=== PATIENT | female | born 1950 | race Caucasian/White ===

== ENCOUNTER → 2018-01-15 09:55 | Outpatient (CLI) | payer MEDICARE, OTHER, SELFPAY ==
--- NOTE | 2018-01-15 10:06 | BI_ITS ---
MAMMOGRAPHY - BILATERAL SCREENING REASON FOR EXAM: Female, 67 years old. Routine annual screening examination. PERTINENT HISTORY: Non-contributory. TECHNIQUE: Digital bilateral breast brooke (3D mammographic acquisition) in the CC and MLO projections. 2-D mediolateral oblique (MLO) and craniocaudad (CC) views of both breasts were obtained. CAD: Full Field Digital Mammography with Computer Added Detection was performed. COMPARISON: Comparison is made with prior outside examination dated March 25, 2016. FINDINGS: Breast Composition: There are scattered areas of fibroglandular density. There is a 6.7 mm x 8.1 mm well-defined nodular density in the superior retroareolar region of the left breast. Correlation with ultrasound is recommended. Stable appearance of the small benign appearing bilateral axillary lymph nodes. No other significant abnormalities are identified. There has been no significant change since the prior study. BI/SCREENING MAMM (CAD), BILAT IMPRESSION: 6.7 mm x 8.1 mm well-defined nodular density in the superior retroareolar region of the left breast as described. Correlation with ultrasound is recommended. ASSESSMENT CATEGORY: BIRADS Category 0: Incomplete. Need additional imaging evaluation. A letter regarding these results will be sent to the patient by the facility within 30 days. Approximately 10% of breast cancers are not detected by mammography. A normal mammogram should not delay biopsy of a clinically suspicious abnormality. [id number] Electronically Signed: Doc Lucero MD at 11:05 EDT Tel [phone], Service support ,
== END ==
PROVIDERS: Visit Provider Nurse Practitioner Women's Health
DX: Z12.31 Encounter for screening mammogram for malignant neoplasm of breast (principal)
CPT/HCPCS: 77063; 77067

== ENCOUNTER → 2018-01-19 08:00 | Outpatient (CLI) | payer MEDICARE, OTHER, SELFPAY ==
--- NOTE | 2018-01-19 08:02 | US_ITS ---
STUDY: ULTRASOUND BREAST - LEFT REASON FOR EXAM: Female, 67 years old. Abnormal screening mammogram. TECHNIQUE: Axial and longitudinal images of the LEFT breast were performed with a high resolution ultrasound transducer. COMPARISON: Comparison is made with prior mammogram dated January 15, 2018. FINDINGS: LEFT Breast: The mammographic abnormality corresponds to a 8 mm x 7 mm x 4 mm well-defined hypoechoic nodule at the 12:00 position of breast at 1 cm from the nipple. This is not a cyst. Tissue diagnosis is recommended. US/Breast Limited Unilateral IMPRESSION: 8 mm x 7 mm x 4 mm well-defined hypoechoic nodule at the 12:00 position of the breast and 1 cm from nipple. Biopsy recommended. ASSESSMENT CATEGORY: BIRADS Category 4: Suspicious - Biopsy Should Be Considered. A letter regarding these results will be sent to the patient by the facility within 30 days. Electronically Signed: Doc Lucero MD at 8:48 EDT Tel [phone], Service support ,
== END ==
PROVIDERS: Visit Provider Nurse Practitioner Women's Health
DX: R92.8 Other abnormal and inconclusive findings on diagnostic imaging of breast (principal)
CPT/HCPCS: 76642

== ENCOUNTER → 2018-01-19 17:57 | Outpatient (CLI) | payer MEDICARE, OTHER, SELFPAY | PROVIDERS: Visit Provider Nurse Practitioner Women's Health | DX: R30.0 Dysuria (principal) | CPT/HCPCS: 87086 ==

== ENCOUNTER → 2018-01-26 08:06 | Outpatient (CLI) | payer MEDICARE, OTHER, SELFPAY ==
--- NOTE | 2018-01-26 08:10 | US_ITS ---
ULTRASOUND GUIDED CORE BIOPSY REASON FOR EXAM: Female, 67 years old. Left breast ultrasound-guided core biopsy. PERTINENT HISTORY: Left breast mass. 1:00 position. TECHNIQUE: (All elements of maximal sterile barrier technique followed, including US elements as applicable) Findings: Multiple core samples were obtained from the left breast nodule at the 1:00 position approximately 1 cm from the nipple. Procedure performed by Dr. Johnson. Postprocedure mammography was obtained to document clip placement. US/US Breast Biopsy 1st Lesion IMPRESSION: Ultrasound guided core biopsy of a mass in the LEFT breast at 1:00 position without complication. Procedure performed by Dr. Johnson. An addendum to this report will be rendered with appropriate recommendations when the pathology report is finalized. Electronically Signed: Jose D Barrios MD at 9:38 EDT , Service support ,
--- NOTE | 2018-01-26 08:41 | BRBX_PTH ---
PATIENT: RAZIA MARTIN LOC: [facility]#:[id number] AGE/SX: 74/F ROOM: RE01/26/[address]: Dr. Vanessa Johnson MD : 1950 BED: DIS: SPEC #: [id number] RECD: 01/26/18 09:19 STATUS: ROBERT ROSA ISELA #: [id number] BIANKA: 01/26/18 08:[address]: Vanessa Johnson DEPT: SURGICAL PATHOLOGY RECD BY: Kenneth Roque ENTERED: 01/26/18 11:13 SP TYPE: BREAST BX OT DR: No Primary Care Phys Tissues: Left breast, NOS Procedures: Surgery Specimen Level IV HEADER OPERATION: Ultrasound-guided left breast biopsy PRE-OP DIAGNOSIS: Left breast lump TISSUE SUBMITTED: Left breast core tissue ISCHEMIC TIME: 1 minute FIXATION TIME: 11 hours MICROSCOPIC DIAGNOSIS Left breast mass, ultrasound-guided core biopsy: Fibrocystic change. No evidence of malignancy. AM:edie 01/27/18 MICROSCOPIC DESCRIPTION Slides are reviewed. GROSS DESCRIPTION Received in fixative is one container labeled with the patient's name and designated left breast biopsy. The specimen consists of multiple irregular and elongated fragments of yellow-white soft tissue that in aggregate measure 1.2 x 1 x 0.1 cm. The specimen is totally submitted in one cassette. / AM:edie 01/26/18 TC:5 CPT: 28721
--- NOTE | 2018-01-26 09:17 | BI_ITS ---
MAMMOGRAPHY - UNILATERAL DIAGNOSTIC: LEFT BREAST REASON FOR EXAM: Female, 67 years old. Abnormal screening mammography. PERTINENT HISTORY: Non-contributory. TECHNIQUE: Digital examination. Mediolateral oblique (MLO) and craniocaudad (CC) views of the breast were obtained. CAD: COMPARISON: Bilateral screening mammography performed January 15, 2018 demonstrating a 6.7 x 8.1 mm nodular density in the superior retroareolar region of the left breast. Evaluate clip placement. FINDINGS: Breast Composition: There are scattered areas of fibroglandular density. A single metallic biopsy clip now exists in the approximate 1:00 position left breast located approximately 4.6 cm from the nipple base. BI/DIAG MAMM W/CAD, UNILAT IMPRESSION: The metallic biopsy clip is seen in the approximate 12 to 1:00 position located 4.6 cm from the nipple base. Please note that the prior mammogram and left breast sonography indicated the hypoechoic and mammographic nodule to be located approximately 1 cm from the nipple. ASSESSMENT CATEGORY: FOLLOW-UP RECOMMENDATION: Left breast 3 month short interval postbiopsy mammographic and sonographic follow-up. Approximately 10% of breast cancers are not detected by mammography. A normal mammogram should not delay biopsy of a clinically suspicious abnormality. Electronically Signed: Jose D Barrios MD at 13:22 EDT , Service support ,
--- NOTE | 2018-01-26 09:41 | PCM.OP.BLANK ---
Operative Report Date of Procedure: 01/26/18 Procedure: ultrasound-guided core biopsy Indications: 67 year-old female with hypoechoic nodule at 1:00 in the left breast 1 centimeter from the nipple. Risk benefits were discussed the patient and she elected to proceed with ultrasound guided core biopsy with clip placement Description of procedure: Patient was brought into the ultrasound room in the left breast was marked. A timeout was completed verifying correct patient, procedure, site, specially, prior to beginning procedure. The left breast was prepped and draped in usual sterile fashion and using local anesthesia was obtained with 1% lidocaine with epi. The lesion was located with the ultrasound. Small incision was made with 11 blade to introduced the mammotome through the skin. Under ultrasound guidance multiple core samples were obtained using then 13-gauge mammotome, the nodule did disappear with the third biopsy. The specimens were sent in formalin for pathology. The mammotome mammostar clip was then deployed into the biopsy cavity under ultrasound guidance and a picture was taken. Upon completion procedure hemostasis was obtained and a Steri-Strip and OpSite were placed. Patient was then taken to the mammography suite for clip verification. The clip was verified. The patient tolerated the procedure well and was discharged from the breast imaging department good condition. complications: none
== END ==
PROVIDERS: Visit Provider Surgery
DX: N60.12 Diffuse cystic mastopathy of left breast (principal); R92.8 Other abnormal and inconclusive findings on diagnostic imaging of breast
CPT/HCPCS: 19083; 77065; 88305

== ENCOUNTER → 2018-02-18 10:38 | Outpatient (CLI) | payer MEDICARE, OTHER, SELFPAY ==
[2018-02-18 11:40] LABS: Absolute Lymphocyte Count 2.44 X10^3/ul (0.83-4.51); Absolute Neutrophil Count 4.9 X10^3/uL (2.0-7.7); Basophil# 0.03 X10^3/uL; Basophil% 0.4 % (0-1); Eosinophil# 0.15 X10^3/uL; Eosinophils% 1.8 % (0-5); Hematocrit 43.3 % (37-47); Hemoglobin 14.2 g/dl (12.0-15.0); Lymphocyte # 2.44 X10^3/ul (4.0); Lymphocyte % 30.1 % (19-41); Mean Corp Hgb Conc 32.8 g/gl (32-36); Mean Corpuscular Hgb 29.3 pg (27.0-32.0); Mean Corpuscular Volume 89.5 fL (81-99); Mean Platelet Vol. 10.6 fl (6.2-12.0); Monocyte# 0.61 X10^3/uL; Monocyte% 7.5 % (0-10); Neutrophil # 4.87 X10^3/uL (2.7-7.7); Neutrophil % 60.1 % (47-70); POSITIVE COUNT NO; POSITIVE DIFFERENTIAL NO; POSITIVE MORPHOLOGY NO; Platelet Count 193 K/mm3 (150-450); RBC Distribution Width CV 13.4 % (11.6-14.6); RBC Distribution Width SD 43.5 fl (35.1-43.9); Red Blood Count 4.84 M/mm3 (4.2-5.4); White Blood Count 8.1 K/mm3 (4.4-11.0)
[2018-02-18 12:08] LABS: ALB/GLOB Ratio 1.3 RATIO (0.9-2.4); AST(SGOT) 15 U/L (15-37); Alanine Aminotransfer ALT/SGPT 22 U/L (13-56); Albumin, Serum 3.9 g/dL (3.2-5.0); Alkaline Phosphatase 69 U/L (45-117); Anion Gap 7 (5-15); BUN 13 mg/dL (7-18); BUN/Creat Ratio 18.3 RATIO (10-20); Chloride 107 mmol/L (98-107); Cholesterol 256 mg/dL (200); Creatinine, Serum 0.71 mg/dL (0.55-1.02); EST Glomerular Filtration Rate 87 mL/min (>60); Est Glom Filt Rate - Afr Amer 106 mL/min (>60); Globulin 3.1 g/dL (2.2-4.2); Glucose 94 mg/dL (74-106); High Density Lipoprotein 89 mg/dL; Potassium 4.3 mmol/L (3.5-5.1); Sodium Level 140 mmol/L (136-145); Triglycerides 118 mg/dL; Very Low Density Lipoprotein 24 mg/dL (5-40)
[2018-02-18 12:16] LABS: Vitamin D,25 Hydroxy 50.6 ng/mL (29.95-100.01)
== END ==
PROVIDERS: Family Provider Internal Medicine; PCP Internal Medicine; Visit Provider Internal Medicine
DX: I10 Essential (primary) hypertension (principal); M81.0 Age-related osteoporosis without current pathological fracture; I34.1 Nonrheumatic mitral (valve) prolapse
CPT/HCPCS: 36415; 80053; 80061; 82306; 85025

== ENCOUNTER → 2018-02-19 10:53 | Outpatient (CLI) | payer MEDICARE, OTHER, SELFPAY ==
--- NOTE | 2018-02-19 11:01 | BD_ITS ---
STUDY: DUAL ENERGY X-RAY ABSORPTIOMETRY / DXA REASON FOR EXAM: Female, 67 years old. The patient is postmenopausal. Loss of height. TECHNIQUE: Bone Mineral Density (BMD) measurements of lumbar spine and bilateral hips were obtained. COMPARISON: Comparison is made with prior study dated March 12, 2005. FINDINGS: Lumbar Spine (L1-L4): g/cm2 (0.853) / T-score (-2.7) / Z-score (-1.1) Findings are suggestive of osteoporosis with a high fracture risk. Left Femur Total: g/cm2 (0.916) / T-score (-0.7) / Z-score (0.5) Left Femoral Neck: g/cm2 (0.870) / T-score (-1.2) / Z-score (0.3) Right Femur Total: g/cm2 (0.933) / T-score (-0.6) / Z-score (0.7) Right Femoral Neck: g/cm2 (0.885) / T-score (-1.1) / Z-score (0.4) The T-Scores on the most recent prior examination were: Lumbar Spine (L1-L4): There has been worsening of bone density since the previous examination. Left Femur Total: which represents a worsening of 7%. BD/Dexa Bone Density Study IMPRESSION: The patient is considered osteoporotic at the low lumbar spine as outlined below according to World [place] Organization (WHO) criteria with a high fracture risk. There has been worsening of bone density since the previous examination. Reference Information: The T-score is the number of standard deviations above or below the standard which is normal for young adults at their peak bone mineral density. The World Health Organization (WHO) interprets the T-scores as follows: Above -1 Normal bone density Between -1 and -2.5 Osteopenia Equal to / or below -2.5 Osteoporosis As a practical clinical guideline, osteopenia may be graded as follows: Mild -1 through -1.5 Moderate -1.6 through -2.0 Severe -2.1 through -2.4 The Z-score is the number of standard deviations above or below age-matched controls. A Z-score of less than -1.5 would be considered abnormal. References: 1. NIH Osteoporosis and Related Bone Diseases http://www.osteo.org 2. International Society for Clinical Densitometry http://www.iscd.org 3. National Osteoporosis Foundation http://www.nof.org Electronically Signed: Doc Lucero MD at 12:29 EDT Tel [phone], Service support ,
== END ==
PROVIDERS: Family Provider Internal Medicine; PCP Internal Medicine; Visit Provider Internal Medicine
DX: Z78.0 Asymptomatic menopausal state (principal); M81.0 Age-related osteoporosis without current pathological fracture
CPT/HCPCS: 77080

== ENCOUNTER → 2018-02-24 14:41 | Outpatient (CLI) | payer MEDICARE, OTHER, SELFPAY ==
--- NOTE | 2018-02-24 14:45 | ECHOD_ITS ---
Reason For Study: MVP Procedure This was a 2D Doppler, Color Flow transthoracic echocardiogram. Exam performed in department. Left Ventricle Normal LV size. Left ventricular systolic function is normal. The estimated ejection fraction is 60 %. Transmitral diastolic flow velocities suggest mild (stage 1) diastolic dysfunction (reversed pattern). No regional wall motion abnormalities noted. Right Ventricle Normal RV size. Normal systolic function. Atria The left atrium is mildly enlarged. Normal right atrium. Mitral Valve Bileaflet diffuse mitral valve thickening. Posterior leaflet mitral valve prolapse. Moderate (2+) eccentric mitral valve insufficiency. Tricuspid Valve Normal tricuspid valve. Mild to moderate (1-2+) tricuspid valve insufficiency. Pulmonary artery systolic pressure is 45 mmHg. Aortic Valve Normal aortic valve. Trisinus/trileaflet aortic valve. Pulmonic Valve Normal pulmonic valve. Great Vessels Normal aortic root. The pulmonary artery is normal size. Normal inferior vena cava. Pericardium/Pleural No pericardial effusion. MMode/2D Measurements & Calculations RVDd: 3.2 cm Ao root diam: 3.6 cm LAV(MOD-bp): 103.1 ml LAV(MOD-bp) Indexed: 59.8 ml/m2 LAV(MOD-sp2): 102.3 ml LAV(MOD-sp4): 103.9 ml LA A4 area: 28.4 cm2 RA A4 area: 10.7 cm2 Time Measurements MV dec time: 0.32 sec Doppler Measurements & Calculations MV E max danny: 78.2 cm/sec Med Peak E' Danny: 5.9 cm/sec MV V2 max: 122.6 cm/sec MV A max danny: 103.5 cm/sec E/E' med: 13.2 MV max P.0 mmHg MV E/A: 0.76 MV V2 mean: 74.7 cm/sec MV mean P.6 mmHg MV V2 VTI: 41.5 cm MV P1/2t max danny: 122.0 cm/sec Ao V2 max: 126.0 cm/sec LV V1 max: 90.3 cm/sec MV P1/2t: 99.7 msec Ao max P.3 mmHg LV V1 max P.3 mmHg MV dec slope: 358.5 cm/sec2 Ao V2 mean: 78.6 cm/sec LV V1 mean P.5 mmHg MVA(P1/2t): 2.2 cm2 Ao mean P.8 mmHg LV V1 mean: 55.4 cm/sec Ao V2 VTI: 21.0 cm LV V1 VTI: 17.3 cm PA V2 max: 67.3 cm/sec TR max danny: 323.0 cm/sec TR max P.7 mmHg Interpretation Summary Normal LV size. Left ventricular systolic function is normal. The estimated ejection fraction is 60 %. Bileaflet diffuse mitral valve thickening. Posterior leaflet mitral valve prolapse. Moderate (2+) eccentric mitral valve insufficiency. Compared to the previous the prolapse is about the same but the pulmonary pressures are elevated. Ordering Physician: Dinh Talamantes Referring Physician: Dinh Talamantes Performed By: Delon Hyde RCS
== END ==
PROVIDERS: Family Provider Internal Medicine; PCP Internal Medicine; Visit Provider Internal Medicine Cardiovascular Disease
DX: I34.0 Nonrheumatic mitral (valve) insufficiency (principal)
CPT/HCPCS: 93306

== ENCOUNTER → 2018-04-02 10:45 | Outpatient (CLI) | payer MEDICARE, OTHER, SELFPAY ==
--- NOTE | 2018-04-02 11:00 | RAD_ITS ---
STUDY: X-RAY - PELVIS AND LEFT HIP REASON FOR EXAM: Female, 67 years old. Pain in the left hip since January. TECHNIQUE: Radiological exam, hip, unilateral, with pelvis when performed; 2 or 3 views. COMPARISON: None. FINDINGS: There is a non-specific bowel gas pattern. Pessary is present. Group of focal densities in the left pelvis which are likely to be contrast retained in diverticula. Vertical anastomotic suture row of the left lower quadrant. Normal bilateral iliac wings, sacroiliac joints and visualized sacrum. Normal bilateral superior and inferior pubic rami. Normal pubic symphysis. Normal bilateral ischial tuberosities. Normal visualized femoral head. Normal acetabulum. Normal hip joint. RAD/Hip 2-3 Views with Pelvis IMPRESSION: Normal x-ray examination of the pelvis and hip. Electronically Signed: Katarzyna Martínez MD at 17:02 EDT , Service support ,
== END ==
PROVIDERS: Family Provider Internal Medicine; PCP Internal Medicine; Visit Provider Nurse Practitioner Family
DX: M25.552 Pain in left hip (principal)
CPT/HCPCS: 73502

== ENCOUNTER 2018-05-07 09:30 | Outpatient (RCR) | payer MEDICARE, OTHER, SELFPAY ==
--- NOTE | 2018-04-23 11:53 | HP.PTEVAL_ITS ---
Patient's Visit Information RAZIA MARTIN is a 67 year old F referred to Physical Therapy by JOE Conway with a diagnosis of LEFT HIP AND LOW BACK PAIN. Date of Evaluation: 04/23/18 Physical Therapist: Karen Little Visit Plan Frequency: 2-3x /Week Duration: 4-6 Weeks Plan: LUMBAR US AND STM. POSTURE CORRECTION/STRENGTHENING, INSTRUCTION IN APPROPRIATE BODY MECHANICS AND ACTIVITY MODIFICATIONS. DLS STARTING WITH A NEUTRAL SPINE PROGRESSING ROM TOLERATED. KWABENA LE ROM, STRETCHING AND STRENGTHENING. HEP INSTRUCTION. - Subjective Subjective: Work/Leisure: RETIRED. Disability: NO. Present symptoms: LEFT LOW BACK PAIN. LEFT THIGH, LEG AND FOOT SX'S TO HER TOES. THE NUMBNESS AND TINGLING IS MOSTLY JUST IN HER TOES BUT PAIN THE WHOLE WAY DOWN HER LEG. Present since: END January 2018. Pain Scale: WORST 8/10, LEAST 0/10. ALL SX 'S COME AND GO INCLUDING TINGLING IN THE TOES. Currently: 1/10 PAIN IN LEFT BUTTOCK. Commenced as a result of: NO APPARENT REASON. Symptoms at onset: LOW BACK PAIN. Worse: BENDING, REACHING, LIFTING, STANDING AND RISING FROM SITTING. Better: STRETCHING LEFT LE AND SHE DESCRIBES STRETCHES LIKE HAMSTRING STRETCHING AND A PIRIFORMIS STRETCH. Disturbed sleep: YES. TURNING OVER SEEMS TO BE THE PROBLEM WAKING HER UP. OK THE LAST TWO NIGHTS BUT DISTURBED BEFORE THAT. Previous history/Previous treatment: PATIENT REPORTS SHE HAS THROWN HER BACK OUT A FEW TIMES IN THE PAST BUT IT HAS BEEN YEARS SINCE THEN. SHE REPORTS SHE FEELS LIKE SHE HAS ALWAYS HAD A WEAK TORSO/BACK AND SHE TRIES TO DO EX'S TO STRENGTHEN IT. HAD PT HERE YEARS AGO AND IT HELPED. NO BACK SURGERY. NO BACK INJECTIONS. NO CHIROPRACTOR. Coughing/sneezing/ straining: NEGATIVE. Gait: PATIENT REPORTS SHE CAN WALK NORMAL BUT WHEN THE PAIN IS THERE SHE FEELS LIKE HER POSTURE IS WAY OFF AND IT PUSHES HER FORWARD. SHE ALSO FEELS LIKE HER SENSATION IS ALTERED IN THE LEFT FOOT AND THE MECHANICS CHANGE IN HER LEG WHEN IT IS FLARED UP. Difficulty initiating urinatin: NO. Accidents: NO. Unexplained weight loss: NO. Imaging: RECENT LEFT HIP X-RAY - NORMAL. PMH: MITRAL VALVE PROLAPSE, OSTEOPOROSIS, ANXIETY, HYPERTENSION, LICHEN SCLEROSUS, IBS. Recent major surgery: HYSTERECTOMY. OTHER: THIS EPISODE - TRIED PREDNISONE WITH SOME RELIEF BUT SYMPTOMS CAME BACK AFTER SHE FINISHED. PATIENT REPORTS THAT SHE HAS HAD EXTREME PAIN AT TIMES WITH THIS EPISODE THAT PROVOKE CRYING BUT SHE SEEMS TO HAVE HAD SOME IMPROVEMENT THE LAST TWO WEEKS FOR NO APPARENT REASON. SHE REPORTS SHE HAS GOOD DAYS AND BAD DAYS. - Objective Sitting/Standing Posture: POOR. Lordosis: REDUCED. Lateral shift: NO. Relevant shift: N/A. Active Correction of posture: WORSE - ACTUALLY PROVOKES INCREASED LEFT FOOT TINGLING. SLOUCHING ABOLISHES LEFT FOOT TINGLING. TOLERATES PASSIVE CORRECTION WELL WITH LUMBAR SUPPORT. Other Observations: INDEP GAIT INTO PT WITH NO GROSS DEVIATIONS NOTED AND INDEP TRANSFER SIT TO STAND WITHOUT UE ASSIST. Motor deficit: KWABENA LE STRENGTH IS 5/5 WITH MMT'ING EXCEPT HIPS: LEFT 4-/5, RIGHT 4/5. Sensory deficit: KWABENA LE LIGHT TOUCH SENSATION IS INTACT AND SYMMETRICAL INLUDING TOES. ROM deficit: KWABENA LE'S WFL BUT MILD TIGHTNESS KWABENA HS'S AND GASTROC SOLEUS COMPLEX'S. Reflexes: 2/3 KWABENA LE 'S. Dural Signs: NEGATIVE KWABENA LE'S. Lumbar mvmt loss: flex - NIL. ext - MOD - PROVOKES LBP IN STANDING. R SG - MIN. L SG - MOD. LEFT FOOT TINGLING BEFORE TESTING AND ABOLISHED AFTER LEFT SG TESTING EVEN THOUGH LEFT SIDE GLIDING WAS PAINFUL AND MORE LIMITED. REPEATED EIL RESULTS IN DECREASED C/O LBP AND DOES NOT PROVOKE LLE SX'S. PATIENT REPORTS SHE HAS BEEN TRYING THIS EX THAT SHE REMEMBERS FROM LAST PT ESPISODE OF CARE OFF AND ON BUT WASN'T SURE IF SHE SHOULD DO IT OR NOT. Core strength: POOR. Palpation: TENDERNESS WITH PALPATION OF THE ENTIRE LUMBOSACRAL AREA. - Goals Goal 1:: DECREASE C/O BACK AND LLE SX'S. Goal Time Frame: 4-6 Weeks Goal 2:: IMPROVE BENDING, LIFTING, PERSONAL CARE, WALKING, STANDING, AND SOCIAL LIFE FUNCTION. Goal Time Frame: 4-6 Weeks Goal 3:: INSTRUCT IN PROPHYLAXIS. Goal Time Frame: 4-6 Weeks - Rehabilitation Potential Rehabilitation Potential: Good - Anticipated Interventions Patient/Client Instruction: Educate patient on: Condition, Plan of Care, Risk Factors, Benefits of Fitness Program For the Purpose of:: To improve self management Therapeutic Exercise to Include: Strength training, Body mechanics, Postural training, Flexibilty training, Dynamic Lumbar Stabilization For the Purpose of:: To decrease pain, To increase ROM, To improve muscle performance and motor function, To improve ability of physical actions for home/ community/work/leisure Manual Therapy Techniques to Include: Soft tissue mobilization For the Purpose of:: To decrease pain, To increase ROM, To improve nutrient delivery to tissue Cryotherapy (ice pack, ice massage): Yes Thermo therapy (hot pack): Yes Ultrasound (thermal/non thermal): Yes For the Purpose of:: To decrease pain, To decrease swelling/inflammation, To increase ROM, To improve nutrient delivery to tissue Thank you for the opportunity to evaluate your patient. For Medicare and Medicare HMO plans, please review the plan of care and approve it. It will need to be FAXED BACK to us at [phone] for Medicare purposes. Please let me know if there are questions or concerns regarding this plan of care. Physician Signature: Date:
--- NOTE | 2018-05-07 10:03 | HP.PTDCSUM_ITS ---
HP - PT D/C Summary It has been my pleasure to treat RAZIA MARTIN under orders from Juan Lopez NP-C , for the diagnosis of LEFT HIP AND LOW BACK PAIN for a total of 6 visit(s). Discharge Date: Please see the following information for a summary of their discharge status. - Subjective Subjective: THIS PATIENT PRESENTS TO PT VERY UPSET ABOUT MULTIPLE FAMILY SITUATIONS GOING ON WITH HER SON IN THE ED, AN ILL SISTER AND UPCOMING SURGERY FOR HER . SHE JUST WANTS TO GO OVER HER CURRENT HOME INSTRUCTIONS AGAIN TO MAKE SURE SHE IS DOING WHAT SHE IS SUPPOSED TO BECAUSE SHE HASN'T HAD A TWINGE OF PAIN SINCE AT LEAST LAST VISIT AND SHE WANTS IT TO STAY THAT WAY. PHYSICALLY SHE FEELS GREAT BUT EMOTIONALLY SHE IS UNDER TREMENDOUS STRESS. SHE REPORTS SHE REALLY CAN'T COME BACK TO PT FOR AWHILE - Overall Improvement % Improvement: 95 - Objective Objective/Function: ALL GOALS MET AND PATIENT IS INDEP WITH A HEP. REVIEWED ALL HOME EX'S AND MADE SURE THAT PATIENT COULD DEMONSTRATE EACH ONE WITH GOOD TECHNIQUE. THE ONLY CUEING SHE NEEDED WAS TO DECREASE INTENSITIY AND RELAX SHOULDERS WHICH SEEMS TO BE MORE OF AN ISSUE TODAY DUE TO PATIENTS REPORTS OF STRESS. ISSUED GREEN TBAND TO DECREASE INTENSITY NEEDED. - Goals Goal 1:: DECREASE C/O BACK AND LLE SX'S. Goal Progress: Goal Met Goal 2:: IMPROVE BENDING, LIFTING, PERSONAL CARE, WALKING, STANDING, AND SOCIAL LIFE FUNCTION. Goal Progress: Goal Met Goal 3:: INSTRUCT IN PROPHYLAXIS. Goal Progress: Goal Met - Plan Plan: D/C TO INDEP HEP. PATIENT IS AGREEABLE AND WILL FOLLOW UP WITH HER FAMILY PHYSICIAN NEEDED. - D/C Information If there are questions or concerns regarding this patient's physical therapy, please feel free to call me at [phone]. Thank you for the referral of this patient. Sincerely, Karen Reyes
== END 2018-05-07 11:16 | disposition home or self-care (01) ==
LOC: PT 09:30
PROVIDERS: Family Provider Internal Medicine; PCP Internal Medicine; Visit Provider Nurse Practitioner Family
DX: M25.552 Pain in left hip (principal); M54.5 Low back pain
CPT/HCPCS: 97035; 97110; 97161; 97164; 97530

== ENCOUNTER → 2018-06-10 09:48 | Outpatient (CLI) | payer MEDICARE, OTHER, SELFPAY ==
[2018-06-10 10:50] LABS: Anion Gap 9 (5-15); BUN 12 mg/dL (7-18); BUN/Creat Ratio 15.4 RATIO (10-20); Calcium,Total 8.8 mg/dL (8.5-10.1); Chloride 107 mmol/L (98-107); Creatinine, Serum 0.78 mg/dL (0.55-1.02); EST Glomerular Filtration Rate 78 mL/min (>60); Est Glom Filt Rate - Afr Amer 95 mL/min (>60); Glucose 98 mg/dL (74-106); Potassium 4.5 mmol/L (3.5-5.1); Sodium Level 141 mmol/L (136-145)
== END ==
PROVIDERS: Family Provider Internal Medicine; PCP Internal Medicine; Visit Provider Internal Medicine
DX: I10 Essential (primary) hypertension (principal)
CPT/HCPCS: 36415; 80048

== ENCOUNTER → 2019-02-03 10:30 | Outpatient (CLI) | payer MEDICARE, OTHER, SELFPAY ==
[2018-08-19 15:57] VITALS: BMI 23.3
[2018-12-09 09:42] VITALS: BMI 23.3
--- NOTE | 2019-02-03 10:32 | BI_ITS ---
MAMMOGRAPHY - BILATERAL SCREENING REASON FOR EXAM: Female, 68 years old. Routine annual screening examination. PERTINENT HISTORY: Non-contributory. Prior left ultrasound-guided breast biopsy. TECHNIQUE: Digital bilateral breast taylor (3D mammographic acquisition) in the CC and MLO projections. 2-D mediolateral oblique (MLO) and craniocaudad (CC) views of both breasts were obtained. CAD: Full Field Digital Mammography with Computer Added Detection was performed. COMPARISON: Comparison is made with prior study dated January 15, 2018. FINDINGS: Breast Composition: There are scattered areas of fibroglandular density. There are no dominant masses or suspicious calcifications. Stable 7 mm x 8 mm nodular density in the superior retroareolar region of the left breast. A tissue marker is seen at the biopsy site. Stable appearance of the bilateral axillary lymph nodes. No other significant abnormalities are identified. There has been no significant change since the prior study. BI/SCREEN MAMM (CAD) W/TAYLOR BILAT IMPRESSION: Stable bilateral screening mammogram. Yearly follow-up mammogram recommended. (A) ASSESSMENT CATEGORY: BIRADS Category 2: Benign. A letter regarding these results will be sent to the patient by the facility within 30 days. Approximately 10% of breast cancers are not detected by mammography. A normal mammogram should not delay biopsy of a clinically suspicious abnormality. [id number] Electronically Signed: Doc Lucero, at 14:23 EDT , Service support ,
== END ==
PROVIDERS: Family Provider Internal Medicine; PCP Internal Medicine; Referring Provider Nurse Practitioner Women's Health; Visit Provider Nurse Practitioner Women's Health
DX: Z12.31 Encounter for screening mammogram for malignant neoplasm of breast (principal)
CPT/HCPCS: 77063; 77067

== ENCOUNTER → 2019-03-16 13:52 | Outpatient (CLI) | payer MEDICARE, OTHER, SELFPAY ==
[2019-02-25 08:33] VITALS: BMI 23.3
--- NOTE | 2019-03-16 13:53 | ECHOD_ITS ---
Reason For Study: MURMUR Procedure This was a 2D Doppler, Color Flow transthoracic echocardiogram. Exam performed in department. Left Ventricle Normal LV size. Left ventricular systolic function is normal. The estimated ejection fraction is 60 %. Normal diastology for age. No regional wall motion abnormalities noted. Right Ventricle Normal RV size. Normal systolic function. Atria The left atrium is moderately enlarged. Normal right atrium. Mitral Valve Bileaflet diffuse mitral valve thickening. Mild mitral valve prolapse, posterior leaflet. Mild- Moderate (1-2+) eccentric mitral valve insufficiency. Tricuspid Valve Normal tricuspid valve. Mild tricuspid valve insufficiency. Pulmonary artery systolic pressure is 34 mmHg. Aortic Valve Normal aortic valve. Trisinus/trileaflet aortic valve. Pulmonic Valve Normal pulmonic valve. Great Vessels Normal aortic root. The pulmonary artery is normal size. Normal inferior vena cava. Pericardium/Pleural Small pericardial effusion. There are no echocardiographic indications of cardiac tamponade. MMode/2D Measurements & Calculations LVIDd: 5.2 cm IVSd: 0.72 cm Ao root diam: 3.0 cm LVIDs: 3.1 cm LVPWd: 0.80 cm RVDd: 3.4 cm FS: 39.8 % LAV(MOD-bp): 89.7 ml LA A4 area: 26.0 cm2 LA dimension(2D): 4.5 cm LAV(MOD-bp) Indexed: 52.8 ml/m2 LAV(MOD-sp2): 76.8 ml LAV(MOD-sp4): 94.2 ml RA A4 area: 11.7 cm2 Doppler Measurements & Calculations Lat Peak E' Danny: 5.4 cm/sec Med Peak E' Danny: 4.4 cm/sec Ao V2 max: 127.5 cm/sec Ao max P.5 mmHg LV V1 max: 93.4 cm/sec PA V2 max: 68.9 cm/sec TR max danny: 270.3 cm/sec LV V1 max P.5 mmHg TR max P.2 mmHg Interpretation Summary Normal LV size. Left ventricular systolic function is normal. The estimated ejection fraction is 60 %. Mild tricuspid valve insufficiency. Bileaflet diffuse mitral valve thickening. Mild mitral valve prolapse, posterior leaflet Compared to prior study, there is no significant change. Ordering Physician: Dinh Talamantes Referring Physician: CLIF SMALLWOOD Performed By: Fabby Haro, BETSY, RVT
== END ==
PROVIDERS: Family Provider Internal Medicine; PCP Internal Medicine; Referring Provider Internal Medicine Cardiovascular Disease; Visit Provider Internal Medicine Cardiovascular Disease
DX: I34.1 Nonrheumatic mitral (valve) prolapse (principal)
CPT/HCPCS: 93306

== ENCOUNTER → 2019-06-16 09:31 | Outpatient (CLI) | payer MEDICARE, OTHER, SELFPAY ==
[2019-06-16 09:32] VITALS: BMI 23.3
[2019-06-16 09:34] LABS: Mucous, Urine 0 SEEN /hpf (<or=2+); Red Blood Cells-Urine 0 SEEN /hpf (0-5); White Blood Cells 0 SEEN /hpf (0-5)
[2019-06-16 12:16] LABS: Absolute Lymphocyte Count 2.14 X10^3/uL (0.83-4.51); Absolute Neutrophil Count 4.2 X10^3/uL (2.0-7.7); Basophil# 0.05 X10^3/uL; Basophil% 0.7 % (0-1); Eosinophils% 2.8 % (0-5); Hemoglobin 14.3 g/dL (12.0-15.0); Lymphocyte # 2.14 X10^3/ul (4.0); Lymphocyte % 29.9 % (19-41); Mean Corp Hgb Conc 33.3 g/dL (32-36); Mean Corpuscular Hgb 30.1 pg (27.0-32.0); Mean Corpuscular Volume 90.5 fL (81-99); Mean Platelet Vol. 10.6 fl (6.2-12.0); Monocyte# 0.58 X10^3/uL; Monocyte% 8.1 % (0-10); NRBC Flagged by Analyzer 0 % (0-5); Neutrophil # 4.16 X10^3/uL (2.7-7.7); Neutrophil % 58.2 % (47-70); Platelet Count 208 K/mm3 (150-450); RBC Distribution Width CV 12.7 % (11.6-14.6); RBC Distribution Width SD 42.1 fl (35.1-43.9); Red Blood Count 4.75 M/mm3 (4.2-5.4); White Blood Count 7.2 K/mm3 (4.4-11.0)
[2019-06-16 12:26] LABS: Color, Urine Yellow (Yellow); Glucose, Dipstick Normal (Normal); Ketone-Dipstick Negative (Negative); Leukocyte Esterase-Dipstick Negative /ul (Negative); Nitrite-Dipstick Negative (Negative); Occult Blood-Urine Negative /ul (Negative); Protein-Dipstick 30 mg/dl (Negative); Urine Bilirubin Dipstick Negative (Negative); Urine Clarity Clear (Clear); Urine Urobilinogen Normal (Normal)
[2019-06-16 12:34] LABS: Bacteria RARE /hpf (None Seen); Squamous Epithelial Cells - UA 0-5 SEEN /hpf (5-10)
[2019-06-16 12:39] LABS: ALB/GLOB Ratio 1.2 RATIO (0.9-2.4); AST(SGOT) 13 U/L (15-37); Alanine Aminotransfer ALT/SGPT 22 U/L (13-56); Albumin, Serum 3.6 g/dL (3.2-5.0); Alkaline Phosphatase 53 U/L (45-117); Anion Gap 6 (5-15); BUN 10 mg/dL (7-18); BUN/Creat Ratio 13.9 RATIO (10-20); Calcium,Total 8.9 mg/dL (8.5-10.1); Chloride 106 mmol/L (98-107); Cholesterol 230 mg/dL (200); Creatinine, Serum 0.72 mg/dL (0.55-1.02); EST Glomerular Filtration Rate 86 mL/min (>60); Est Glom Filt Rate - Afr Amer 104 mL/min (>60); Globulin 2.9 g/dL (2.2-4.2); Glucose 101 mg/dL (74-106); High Density Lipoprotein 96 mg/dL; Potassium 3.9 mmol/L (3.5-5.1); Protein, Total 6.5 g/dL (6.4-8.2); Sodium Level 139 mmol/L (136-145); Triglycerides 75 mg/dL; Very Low Density Lipoprotein 15 mg/dL (5-40)
== END ==
PROVIDERS: Family Provider Internal Medicine; PCP Internal Medicine; Visit Provider Internal Medicine
DX: I27.21 Secondary pulmonary arterial hypertension (principal); I10 Essential (primary) hypertension; E78.5 Hyperlipidemia, unspecified
CPT/HCPCS: 36415; 80053; 80061; 81001; 85025

== ENCOUNTER 2019-06-28 08:48 | Day surgery (SDC) | payer MEDICARE, OTHER, SELFPAY ==
--- NOTE | 2019-06-21 03:13 | HP_ITS ---
Intake Vital Signs 06/21/19 Body Mass Index (BMI) 23.3 06/21/19 Height 5 ft 5 in 06/21/19 Weight: 140 lb 06/21/19 Body Mass Index (BMI) 23.3 06/21/19 Blood Pressure 153/78 H 06/21/19 Blood Pressure Location Rt brachial 06/21/19 Respiratory Rate 16 06/21/19 Pulse Rate 73 06/21/19 Pulse Source Monitor 06/21/19 Temperature 98.5 F 06/21/19 Pulse Ox 96 06/21/19 Oxygen Delivery Method room air Intake Visit Reasons: blood in stool, reset colonoscopy date Feed Research Aide Required: No Is patient in pain?: No Allergies penicillin G Allergy (Mild, Verified 06/21/19 14:40) Other Medications clindamycin HCl 300 mg capsule 600 mg PO .COMPLEX #6 cap 04/28/18 [Rx Confirmed 06/21/19] denosumab 60 mg/mL subcutaneous syringe 60 mg SC [id number] 06/15/18 [History Confirmed 06/21/19] conjugated estrogens 0.625 mg/gram vaginal cream See Rx Instructions .ROUTE .COMPLEX #30 g 02/03/19 [Rx Confirmed 06/21/19] fluocinolone 0.025 % topical cream 1 applic TOPICAL BID PRN #15 g 02/03/19 [Rx Confirmed 06/21/19] hydrochlorothiazide 12.5 mg tablet 12.5 mg PO QAM #90 tab 02/25/19 [Rx Confirmed 06/21/19] fluconazole 150 mg tablet 150 mg PO .COMPLEX #2 tab 03/30/19 [Rx Confirmed 06/21/19] acebutolol 200 mg capsule 200 mg PO QDAY #90 cap 06/04/19 [Rx Confirmed 06/21/19] PFSH Medical History Secondary pulmonary arterial hypertension (Chronic) Essential (primary) hypertension (Chronic) Hyperlipidemia (Chronic) Nonrheumatic mitral (valve) insufficiency (Chronic) Nonrheumatic mitral valve prolapse (Chronic) Anxiety (Chronic) Atrophic vaginitis (Chronic) IBS (irritable bowel syndrome) (Chronic) Lichen sclerosus (Chronic) Osteoporosis (Chronic) Vaginal vault prolapse, posthysterectomy (Chronic) Surgical History H/O spinal fusion (Resolved) History of LAVH (Resolved) S/P breast biopsy, left (Resolved) Family History Sister Cancer ovarian Hypertension Mother Heart disease Hypertension Father Heart disease Hypertension Social History (Updated 06/21/19 @ 15:13 by Vanessa Johnson MD) Smoking Status: Never smoker Tobacco: How many years used: 10 how long ago did patient quit smokin alcohol intake: current alcohol intake frequency: 0-2 drinks per day Alcohol type: wine details: social-wine substance use type: does not use caffeine: Yes what type of physical activity do you participate in: walking seatbelt use: always do you feel safe at home: Yes additional social history: Isidro- Both are retired HPI HPI HPI: RAZIA MARTIN, is a 68 F who presents to the office today for HPI HPI Surgical H&P: Yes HPI: RAZIA MARTIN, is a 68 F who presents to the office today for colonoscopy due to blood per rectum, diarrhea. Patient states that a month ago she had some of her friends cookies with a certain sweetener in it and started to have diarrhea after that. Patient states her stools are still very loose but a little bit better. Last Friday patient did notice bright red blood upon wiping. Patient denies any further bleeding since then. Patient's last colonoscopy was in [address] Ruiz. Patient states she had a lot of pain during the procedure and was scheduled last year however she had to cancel and she also had lumbar fusion surgery in September 2018. Patient denies any family history of colon cancer. Exam Const General: cooperative, comfortable, no acute distress Resp Effort & Inspection: normal respiratory effort Cardio Rate: regular rate GI Inspection: non-distended Palpation: soft, no guarding, nontender Other: Patient does have a very small amount of residual external hemorrhoidal tissue at 5:00 also has internal hemorrhoid at 6:00 (12:00 equals posterior), no other masses appreciated, no gross blood Assessment & Plan Problems 1. Blood per rectum K62.5 2. Diarrhea R19.7 Plan I have discussed the above with the patient. I have offered the patient colonoscopy for evaluation. And will plan for random biopsies due to her diarrhea. I have explained the risks/benefits of the procedure and described the procedure. I have discussed the risks with the patient, including but not limited to: infection, bleeding, perforation of the GI tract requiring emergency surgery, inability to complete the procedure, injury to any internal organs, complications of anesthesia, etc. - the patient understands and agrees to proceed. I have answered all the patient's questions to the patient's satisfaction and the patient has no further questions. The patient has been given instructions for the colon cleansing preparation. One day of clears MiraLAX Dulcolax split prep. Vanessa Johnson M.D. Pager: [phone] [facility] [address] [place] [address], [address] [place] [address] Office: [phone] Plan Detail Follow Up We will schedule colonoscopy Coding Level of Care Code Off vis,est,level 3 Diagnoses Blood per rectum K62.5 Diarrhea R19.7 06/21/19 1513 <Electronically signed by Vanessa Foster am, MD> Date _ Vanessa Johnson MD I have re-examined the patient. There are no clinical changes since date of exam.
[2019-06-21 14:46] VITALS: BMI 23.3
[2019-06-28] VITALS (7 sets, daily range): BP systolic 106–141; BP diastolic 60–94; PULSE 67–79; RESP 16–18; TEMP 36.1–36.9; O2SAT 95–100; BMI 21.9
--- NOTE | 2019-06-28 | COLBX_PTH ---
PATIENT: RAZIA MARTIN LOC: EN U#:[id number] AGE/SX: 68/F ROOM: RE06/28/[address]: Dr. Vanessa Johnson MD : 1950 BED: DIS: 06/28/2019 SPEC #: [id number] RECD: 06/28/19 14:24 STATUS: ROBERT ROSA ISELA #: [id number] BIANKA: 06/28/19 00:[address]: Vanessa Johnson DEPT: SURGICAL PATHOLOGY RECD BY: Raymon Wylie ENTERED: 06/28/19 14:24 SP TYPE: COLON BX OTHR DR: Dr. Aníbal Chun MD Tissues: A - Ascending colon B - Transverse colon C - Descending colon D - Sigmoid colon biopsy E - Rectum, NOS Procedures: Surgery Specimen Level IV HEADER OPERATION: Colonoscopy (MAC) PRE-OP DIAGNOSIS: Diarrhea, blood per rectum TISSUE SUBMITTED: A - Ascending colon polyp, B - Biopsy of transverse colon polyp, C - Random biopsy of descending colon, D - Random biopsy of sigmoid colon, E - Random biopsies of rectal MICROSCOPIC DIAGNOSIS A. Ascending colon polyp, biopsy: Fragments of tubular adenoma. B. Transverse colon polyp, biopsy: Tubular adenoma. C. Descending colon, random biopsy: No pathologic diagnosis. D. Sigmoid colon, random biopsy: No significant pathologic change. E. Rectum, random biopsy: No pathologic change. AM:edie 06/29/19 MICROSCOPIC DESCRIPTION Slides are reviewed. GROSS DESCRIPTION A - Received in fixative is one container labeled with the patient's name and designated ascending colon polyp. The specimen consists of two irregular fragments of baird soft tissue that in aggregate measure 0.5 x 0.4 x 0.2 cm. The specimen is totally submitted in one cassette. B - Received in fixative is one container labeled with the patient's name and designated biopsy of transverse colon polyp. The specimen consists of one irregular fragment of light baird soft tissue that measures 0.3 x 0.3 x 0.1 cm. Also present in the container is a fragment of baird soft tissue measuring 0.1 cm in greatest dimension. The specimen is totally submitted in one cassette. C - Received in fixative is one container labeled with the patient's name and designated random biopsy of descending colon. The specimen consists of one irregular fragment of light baird soft tissue that measures 0.3 x 0.2 x 0.1 cm. The specimen is totally submitted in one cassette. D - Received in fixative is one container labeled with the patient's name and designated random biopsy of sigmoid colon. The specimen consists of one irregular fragment of light baird soft tissue that measures 0.3 x 0.2 x 0.1 cm. The specimen is totally submitted in one cassette. E - Received in fixative is one container labeled with the patient's name and designated random biopsy of rectum. The specimen consists of two irregular fragments of light baird soft tissue that in aggregate measure 0.5 x 0.2 x 0.1 cm. The specimen is totally submitted in one cassette. / SJ:rg 06/28/19 TC:5 CPT: 22134 x5
[2019-06-28] MEDS: Lactated Ringers 1,000 ML 100 ML IV (09:14)
--- NOTE | 2019-06-28 10:28 | OP.ENDO_ITS ---
06/28/2019 Aníbal Chun MD [address] [place] [address] [place] [address] Re : Colonoscopy procedure for Adelita Navarro Dear Dr. Chun This procedure was performed on Friday, June 28, 2019. My impressions and recommendations are as follows: Impressions : - Hemorrhoids found on perianal exam. - One less than 5 mm polyp in the ascending colon, removed with a hot snare. Resected and retrieved. - One less than 5 mm polyp in the transverse colon, removed with a cold biopsy forceps. Resected and retrieved. Biopsied. - Internal hemorrhoids. - Three biopsies were obtained in the rectum, in the sigmoid colon and in the descending colon. Recommendations : - Discharge patient to home. - Repeat colonoscopy in 3 - 5 years for surveillance based on pathology results. - Continue present medications. My findings are described in the full procedure note, which is enclosed. If I can be of further assistance, please feel free to contact me at Doctor phone number(s): , Work: . Sincerely, MD Vanessa Haider MD 06/28/2019 10:27:46 AM This report has been signed electronically.
== END 2019-06-28 11:10 | disposition home or self-care (01) ==
LOC: EN 08:50 → AC 08:51
PROVIDERS: Family Provider Internal Medicine; PCP Internal Medicine; Referring Provider Internal Medicine; Visit Provider Surgery
PROC: 0DJD8ZZ Inspection of Lower Intestinal Tract, Via Natural or Artificial Opening Endoscopic (ICD-10-PCS; CPT 45378; principal; 2019-06-28 09:55)
DX: D12.2 Benign neoplasm of ascending colon (principal); D12.3 Benign neoplasm of transverse colon; K62.5 Hemorrhage of anus and rectum; K58.0 Irritable bowel syndrome with diarrhea; K64.0 First degree hemorrhoids; I34.0 Nonrheumatic mitral (valve) insufficiency; I34.1 Nonrheumatic mitral (valve) prolapse; L90.0 Lichen sclerosus et atrophicus; I27.21 Secondary pulmonary arterial hypertension; I10 Essential (primary) hypertension; E78.5 Hyperlipidemia, unspecified; F41.9 Anxiety disorder, unspecified; M81.0 Age-related osteoporosis without current pathological fracture; Z78.0 Asymptomatic menopausal state; Z88.0 Allergy status to penicillin; Z79.899 Other long term (current) drug therapy; Z87.891 Personal history of nicotine dependence
CPT/HCPCS: 45380; 45385; 88305; J7120; J2405

== ENCOUNTER 2020-12-12 03:50 | Outpatient (RCR) | payer MEDICARE, OTHER, SELFPAY ==
[2020-06-20 13:22] VITALS: BMI 23.3
[2020-12-12] MEDS: COVID-19 VACC, MRNA(PFIZER)/PF 30 MCG/0.3 ML SYRINGE IM (10:24)
[2021-01-02] MEDS: COVID-19 VACC, MRNA(PFIZER)/PF 30 MCG/0.3 ML SYRINGE IM (10:05)
== END 2021-03-13 23:59 ==
LOC: IMMUN 03:50
PROVIDERS: PCP Internal Medicine; Visit Provider Family Medicine
DX: Z23 Encounter for immunization (principal)
CPT/HCPCS: 0001A; 0002A; 91300

== ENCOUNTER → 2021-01-23 | Outpatient (CLI) | payer MEDICARE, OTHER, SELFPAY ==
[2021-01-23 13:29] VITALS: BMI 23.6
== END | disposition home or self-care (01) ==
LOC: LABSPEC 14:40
PROVIDERS: PCP Internal Medicine; Visit Provider Nurse Practitioner Women's Health
DX: R30.0 Dysuria (principal)
CPT/HCPCS: 87086; 87088

== ENCOUNTER → 2021-02-05 13:12 | Outpatient (CLI) | payer MEDICARE, OTHER, SELFPAY ==
[2021-02-05 10:33] VITALS: BMI 23.6
== END ==
PROVIDERS: PCP Internal Medicine; Referring Provider Nurse Practitioner Women's Health; Visit Provider Nurse Practitioner Women's Health
DX: R30.9 Painful micturition, unspecified (principal); N89.8 Other specified noninflammatory disorders of vagina
CPT/HCPCS: 87070; 87086; 87205

== ENCOUNTER → 2021-03-13 11:17 | Outpatient (CLI) | payer MEDICARE, OTHER, SELFPAY ==
[2021-03-13 10:49] VITALS: BMI 23.6
[2021-03-13 11:54] LABS: Absolute Lymphocyte Count 2.92 X10^3/uL (0.83-4.51); Absolute Neutrophil Count 4.5 X10^3/uL (2.0-7.7); Basophil# 0.06 X10^3/uL; Basophil% 0.7 % (0-1); Eosinophil# 0.16 X10^3/uL; Eosinophils% 1.9 % (0-5); Hematocrit 45.4 % (37-47); Hemoglobin 14.7 g/dL (12.0-15.0); Lymphocyte # 2.92 X10^3/ul (0.83-4.51); Lymphocyte % 34.8 % (19-41); Mean Corp Hgb Conc 32.4 g/dL (32-36); Mean Corpuscular Hgb 29.9 pg (27.0-32.0); Mean Corpuscular Volume 92.5 fL (81-99); Mean Platelet Vol. 9.9 fl (6.2-12.0); Monocyte% 8.3 % (0-10); NRBC Flagged by Analyzer 0 % (0-5); Neutrophil # 4.54 X10^3/uL (2.7-7.7); Neutrophil % 54.1 % (47-70); Platelet Count 260 K/mm3 (150-450); RBC Distribution Width CV 13.2 % (11.6-14.6); RBC Distribution Width SD 45.1 fl (35.1-43.9); Red Blood Count 4.91 M/mm3 (4.2-5.4); White Blood Count 8.4 K/mm3 (4.4-11.0)
[2021-03-13 12:30] LABS: Vitamin D,25 Hydroxy 64.8 ng/mL
[2021-03-13 12:42] LABS: ALB/GLOB Ratio 1.5 RATIO (0.9-2.4); AST(SGOT) 19 U/L (15-37); Alanine Aminotransfer ALT/SGPT 22 U/L (13-56); Albumin, Serum 4.2 g/dL (3.2-5.0); Alkaline Phosphatase 58 U/L (45-117); Anion Gap 7 (5-15); BUN 10 mg/dL (7-18); BUN/Creat Ratio 13.4 RATIO (10-20); Calcium,Total 9.7 mg/dL (8.5-10.1); Chloride 104 mmol/L (98-107); Cholesterol 281 mg/dL (200); Creatinine, Serum 0.75 mg/dL (0.55-1.02); EST Glomerular Filtration Rate 82 mL/min (>60); Est Glom Filt Rate - Afr Amer 99 mL/min (>60); Globulin 2.8 g/dL (2.2-4.2); Glucose 101 mg/dL (74-106); High Density Lipoprotein 115 mg/dL; Sodium Level 140 mmol/L (136-145); Triglycerides 67 mg/dL; Very Low Density Lipoprotein 13 mg/dL (5-40)
== END ==
PROVIDERS: PCP Internal Medicine; Referring Provider Internal Medicine; Visit Provider Internal Medicine
DX: I34.1 Nonrheumatic mitral (valve) prolapse (principal); I10 Essential (primary) hypertension; E78.5 Hyperlipidemia, unspecified; M81.0 Age-related osteoporosis without current pathological fracture
CPT/HCPCS: 36415; 80053; 80061; 82306; 85025

== ENCOUNTER → 2021-03-26 | Outpatient (CLI) | payer MEDICARE, OTHER, SELFPAY ==
[2021-03-26 11:02] VITALS: BMI 23.6
== END | disposition home or self-care (01) ==
LOC: LABSPEC 13:04
PROVIDERS: PCP Internal Medicine; Referring Provider Nurse Practitioner Women's Health; Visit Provider Nurse Practitioner Women's Health
DX: R30.0 Dysuria (principal)
CPT/HCPCS: 87086

== ENCOUNTER → 2021-04-03 09:55 | Outpatient (CLI) | payer MEDICARE, OTHER, SELFPAY ==
[2021-02-05 10:33] VITALS: BMI 23.6
[2021-03-26 11:02] VITALS: BMI 23.6
--- NOTE | 2021-04-03 09:57 | BD_ITS ---
STUDY: DUAL ENERGY X-RAY ABSORPTIOMETRY / DXA REASON FOR EXAM: Female, 70 years old. FU Prolia. Patient is postmenopausal. Loss of height. TECHNIQUE: Bone Mineral Density (BMD) measurements of lumbar spine and bilateral hips were obtained. COMPARISON: Comparison is made with prior study dated 02/19/2018. FINDINGS: Lumbar Spine (L1-L4): g/cm2 (0.846) / T-score (-2.7) / Z-score (-1.0) Findings are suggestive of osteoporosis with a high fracture risk. Increased kyphosis. Left Femur Total: g/cm2 (0.949) / T-score (-0.5) / Z-score (1.0) Left Femoral Neck: g/cm2 (0.874) / T-score (-1.2) / Z-score (0.5) Right Femur Total: g/cm2 (0.972) / T-score (-0.3) / Z-score (1.1) Right Femoral Neck: g/cm2 (0.870) / T-score (-1.2) / Z-score (0.5) The T-Scores on the most recent prior examination were: Lumbar Spine (L1-L4): There has been improvement of bone density since the previous examination. Left Femur Total: which represents an improvement of 3.6%. Right Femur Total: which represents an improvement of 4.2%. BD/Dexa Bone Density Study IMPRESSION: The patient is considered osteoporotic as outlined below according to World [place] Organization (WHO) criteria with a high fracture risk. There has been improvement of bone density since the previous examination. Reference Information: The T-score is the number of standard deviations above or below the standard which is normal for young adults at their peak bone mineral density. The World Health Organization (WHO) interprets the T-scores as follows: Above -1 Normal bone density Between -1 and -2.5 Osteopenia Equal to / or below -2.5 Osteoporosis As a practical clinical guideline, osteopenia may be graded as follows: Mild -1 through -1.5 Moderate -1.6 through -2.0 Severe -2.1 through -2.4 The Z-score is the number of standard deviations above or below age-matched controls. A Z-score of less than -1.5 would be considered abnormal. References: 1. NIH Osteoporosis and Related Bone Diseases www osteo.org 2. International Society for Clinical Densitometry www iscd.org 3. National Osteoporosis Foundation www nof.org Electronically Signed: Doc Lucero MD at 14:00 EDT , Service support ,
--- NOTE | 2021-04-03 09:57 | BI_ITS ---
MAMMOGRAPHY - BILATERAL SCREENING REASON FOR EXAM: Female, 70 years old. Routine annual screening examination. PERTINENT HISTORY: Non-contributory. History of prior left ultrasound-guided breast biopsy. TECHNIQUE: Digital bilateral breast taylor (3D mammographic acquisition) in the CC and MLO projections. 2-D mediolateral oblique (MLO) and craniocaudad (CC) views of both breasts were obtained. CAD: Full Field Digital Mammography with Computer Added Detection was performed. COMPARISON: Comparison is made with prior study of 02/03/2019 and 01/26/2018. FINDINGS: Breast Composition: There are scattered areas of fibroglandular density. There are no dominant masses or suspicious calcifications. A tissue clip marker is once again seen in the slightly upper lateral midportion of the left breast. Stable benign-appearing bilateral axillary lymph nodes. No other significant abnormalities are identified. There has been no significant change since the prior study. BI/SCRN MAMM (CAD)W/TAYLOR BILAT IMPRESSION: Stable bilateral screening mammogram. Yearly follow-up mammogram recommended. (A) ASSESSMENT CATEGORY: BIRADS Category 2: Benign. A letter regarding these results will be sent to the patient by the facility within 30 days. Approximately 10% of breast cancers are not detected by mammography. A normal mammogram should not delay biopsy of a clinically suspicious abnormality. [id number] Electronically Signed: Doc Lucero MD at 12:53 EDT , Service support ,
== END ==
PROVIDERS: PCP Internal Medicine; Referring Provider Nurse Practitioner Women's Health; Visit Provider Nurse Practitioner Women's Health
DX: Z12.31 Encounter for screening mammogram for malignant neoplasm of breast (principal); Z13.820 Encounter for screening for osteoporosis; M81.0 Age-related osteoporosis without current pathological fracture; Z78.0 Asymptomatic menopausal state
CPT/HCPCS: 77063; 77067; 77080

== ENCOUNTER → 2021-04-05 | Outpatient (CLI) | payer MEDICARE, OTHER, SELFPAY ==
[2021-04-05 13:15] VITALS: BMI 23.6
== END | disposition home or self-care (01) ==
PROVIDERS: PCP Internal Medicine; Referring Provider Nurse Practitioner Women's Health; Visit Provider Nurse Practitioner Women's Health
DX: R30.9 Painful micturition, unspecified (principal)
CPT/HCPCS: 87086

== ENCOUNTER → 2021-07-16 | Outpatient (CLI) | payer MEDICARE, OTHER, SELFPAY | END | disposition home or self-care (01) | LOC: LABSPEC 14:47 | PROVIDERS: PCP Internal Medicine; Referring Provider Nurse Practitioner Women's Health; Visit Provider Nurse Practitioner Women's Health | DX: R39.89 Other symptoms and signs involving the genitourinary system (principal) | CPT/HCPCS: 87086; 87088; 87186 ==

== ENCOUNTER → 2022-03-13 | Outpatient (CLI) | payer MEDICARE, OTHER, SELFPAY ==
[2022-03-13 12:20] LABS: Absolute Lymphocyte Count 2.24 X10^3/uL (0.83-4.51); Absolute Neutrophil Count 5.8 X10^3/uL (2.0-7.7); Basophil# 0.05 X10^3/uL; Basophil% 0.5 % (0-1); Eosinophil# 0.34 X10^3/uL; Eosinophils% 3.7 % (0-5); Hematocrit 42.3 % (37-47); Hemoglobin 14.1 g/dL (12.0-15.0); Lymphocyte # 2.24 X10^3/ul (0.83-4.51); Lymphocyte % 24.6 % (19-41); Mean Corp Hgb Conc 33.3 g/dL (32-36); Mean Corpuscular Hgb 30.7 pg (27.0-32.0); Mean Platelet Vol. 10.6 fl (6.2-12.0); Monocyte# 0.64 X10^3/uL; NRBC Flagged by Analyzer 0 % (0-5); Neutrophil # 5.82 X10^3/uL (2.7-7.7); Neutrophil % 63.9 % (47-70); Platelet Count 221 K/mm3 (150-450); RBC Distribution Width CV 12.6 % (11.6-14.6); RBC Distribution Width SD 42.1 fl (35.1-43.9); White Blood Count 9.1 K/mm3 (4.4-11.0)
[2022-03-13 12:50] LABS: ALB/GLOB Ratio 1.4 RATIO (0.9-2.4); AST(SGOT) 16 U/L (15-37); Alanine Aminotransfer ALT/SGPT 24 U/L (13-56); Albumin, Serum 3.8 g/dL (3.2-5.0); Alkaline Phosphatase 57 U/L (45-117); Anion Gap 7 (5-15); BUN 9 mg/dL (7-18); BUN/Creat Ratio 12.1 RATIO (10-20); Calcium,Total 9.1 mg/dL (8.5-10.1); Chloride 100 mmol/L (98-107); Cholesterol 237 mg/dL (200); Creatinine, Serum 0.74 mg/dL (0.55-1.02); EST Glomerular Filtration Rate 82 mL/min (>60); Est Glom Filt Rate - Afr Amer 99 mL/min (>60); Globulin 2.8 g/dL (2.2-4.2); Glucose 116 mg/dL (74-106); High Density Lipoprotein 95 mg/dL; Potassium 3.5 mmol/L (3.5-5.1); Protein, Total 6.6 g/dL (6.4-8.2); Sodium Level 136 mmol/L (136-145); Triglycerides 115 mg/dL; Very Low Density Lipoprotein 23 mg/dL (5-40)
[2022-03-13 12:51] LABS: Vitamin D,25 Hydroxy 58.3 ng/mL
[2022-03-13 18:36] LABS: Hemoglobin A1c 5.5 % (3.8-5.6)
== END | disposition home or self-care (01) ==
LOC: BIMLAB 10:13
PROVIDERS: PCP Internal Medicine; Referring Provider Internal Medicine; Visit Provider Internal Medicine
DX: I10 Essential (primary) hypertension (principal); R73.9 Hyperglycemia, unspecified; E78.5 Hyperlipidemia, unspecified; M81.0 Age-related osteoporosis without current pathological fracture
CPT/HCPCS: 36415; 80053; 80061; 82306; 83036; 85025

== ENCOUNTER → 2022-03-22 | Outpatient (CLI) | payer MEDICARE, OTHER, SELFPAY ==
--- NOTE | 2022-03-22 11:38 | CT_ITS ---
STUDY: CT LUMBAR SPINE WITH INTRATHECAL CONTRAST (LUMBAR CT MYELOGRAM) REASON FOR EXAM: Female, 71 years old. LUMBAR FUSION RADIATION DOSAGE (If Supplied By Facility): CTDIvol = ( 11.61 ) mGy, DLP = ( 322.78 ) mGycm TECHNIQUE: Transaxial images were obtained from the T12 vertebra through the S1 vertebrae, following intrathecal administration of 15 ml of ISOVUE-M 200 contrast material, performed by Dr. SANAM Shine. Please refer to this physicians technical notes for procedural details. Coronal and sagittal reconstructions were obtained. Individualized dose optimization techniques were used for this CT. COMPARISON: None. FINDINGS: Normal lumbar lordosis. There is no substantial scoliosis. The patient is status post laminectomy and interpedicular screw fixation at the L4-L5 level There is dependent layering of contrast material in the distal thecal sac. The conus medullaris terminates in a normal position at the L1-L2 level. There is no demonstrated cauda equina nerve root abnormality or intraspinal mass. L1-2: Normal endplates. Normal disc height and morphology. Normal bilateral facet joints. Normal central canal and bilateral lateral recesses. Normal bilateral intervertebral neural foramina. L2-3: Mild degree of left paracentral disc herniation causing narrowing of the left intervertebral foramen. L3-4: Marked degree of central and canal stenosis due to hypertrophy of the facet joints as well as the ligamentum flavum and diffuse posterior disc bulge. L4-5: The patient is status post laminectomy and interpedicular screw fixation. No evidence of spinal stenosis. L5-S1: Normal endplates. Normal disc height and morphology. Normal bilateral facet joints. Normal central canal and bilateral lateral recesses. Normal bilateral intervertebral neural foramina. Normal visualized sacroiliac joints. Normal visualized paraspinous soft tissue structures. CT/Spine Lumbar WITH Contrast IMPRESSION: Moderate degree of central canal and lateral canal stenosis due to hypertrophy of the facet joints and the ligamentum flavum with diffuse posterior disc bulge at the L3-L4 level. Mild degree of left paravertebral disc herniation at the L2-L3 level causing narrowing of the left intervertebral foramen. Electronically Signed: Doc Lucero MD at 14:32 EDT ,
[2022-03-22 12:09] VITALS: BP 145/81; PULSE 67; RESP 16; O2SAT 96; BMI 22.9
--- NOTE | 2022-03-22 12:20 | RAD_ITS ---
PROCEDURE: LUMBAR MYELOGRAM DATE OF EXAMINATION: 03/22/2022. INDICATION: Female, 71 years old. Low back pain and left leg numbness. PHYSICIAN: Doc Lucero M.D. CONSENT: The patient''s history and physical findings were reviewed. The lumbar myelogram procedure was discussed with the patient prior to signing a consent. SEDATION: Local anesthesia with 3 mL of 1% lidocaine was used. FLUOROSCOPY TIME (if supplied): (0:36) minutes/seconds. 4 images were submitted. Injection Information: 15 cc of ISOVUE-M 200 Number of images obtained: 4 TECHNIQUE: Digital fluoroscopy was used to identify a safe approach for the lumbar myelogram. The back was prepped and draped in usual fashion. Local anesthesia was utilized. Under fluoroscopic guidance a 22-gauge spinal needle was inserted into the spinal canal at the L4-5 level. Clear spinal fluid was seen. 15 mL of Isovue 200 M was injected into the spinal canal. There is good opacification of the spinal fluid. The patient is status post laminectomy and fusion at the L4-L5 level. There is a moderate degree of spinal stenosis at the L3-L4 level. CT scan will follow. RAD/Lumbar Myelogram IMPRESSION: Spinal stenosis at the L3-L4 level. CT scan will follow. Electronically Signed: Doc Lucero MD at 13:52 EDT ,
[2022-03-22] MEDS: Lidocaine 2% (5ml sdv) 5 ML VIAL.MPF INFILT (12:40)
[2022-03-22 12:54] VITALS: BP 140/67; PULSE 66; RESP 16; O2SAT 93
[2022-03-22 14:13] VITALS: BP 141/69; PULSE 61; RESP 16; O2SAT 99
== END | disposition home or self-care (01) ==
PROVIDERS: PCP Internal Medicine
DX: Z98.1 Arthrodesis status (principal)
CPT/HCPCS: 62304; 72132; Q9965

== ENCOUNTER → 2022-04-22 | Outpatient (CLI) | payer MEDICARE, OTHER, SELFPAY ==
--- NOTE | 2022-04-22 09:55 | BI_ITS ---
MAMMOGRAPHY - BILATERAL SCREENING REASON FOR EXAM: Female, 71 years old. Routine annual screening examination. PERTINENT HISTORY: Non-contributory. Prior left ultrasound-guided breast biopsy. TECHNIQUE: Digital bilateral breast taylor (3D mammographic acquisition) in the CC and MLO projections. 2-D mediolateral oblique (MLO) and craniocaudad (CC) views of both breasts were obtained. CAD: Full Field Digital Mammography with Computer Added Detection was performed. COMPARISON: Comparison is made with prior study dated 04/03/2021 and 02/03/2019. FINDINGS: Breast Composition: There are scattered areas of fibroglandular density. There are no dominant masses or suspicious calcifications. Stable small benign appearing bilateral axillary nodes. A tissue clip marker is seen in the slightly upper lateral midportion of the left breast. Stable tiny nodule is seen at that site. No other significant abnormalities are identified. There has been no significant change since the prior study. BI/SCRN MAMM (CAD)W/TAYLOR BILAT IMPRESSION: Stable bilateral screening mammogram. Yearly follow-up mammogram recommended. (A) ASSESSMENT CATEGORY: BIRADS Category 2: Benign. A letter regarding these results will be sent to the patient by the facility within 30 days. Approximately 10% of breast cancers are not detected by mammography. A normal mammogram should not delay biopsy of a clinically suspicious abnormality. [id number] Electronically Signed: Doc Lucero MD at 10:42 EDT ,
== END | disposition home or self-care (01) ==
LOC: OPBI 09:54
PROVIDERS: PCP Internal Medicine; Visit Provider Internal Medicine
DX: Z12.31 Encounter for screening mammogram for malignant neoplasm of breast (principal)
CPT/HCPCS: 77063; 77067

== ENCOUNTER → 2022-10-25 | Outpatient (CLI) | payer MEDICARE, OTHER, SELFPAY ==
[2022-10-25 12:39] LABS: Anion Gap 7 (5-15); BUN 10 mg/dL (7-18); BUN/Creat Ratio 12.9 RATIO (10-20); Calcium,Total 9.6 mg/dL (8.5-10.1); Chloride 99 mmol/L (98-107); Creatinine, Serum 0.78 mg/dL (0.55-1.02); EST Glomerular Filtration Rate 78 mL/min (>60); Est Glom Filt Rate - Afr Amer 94 mL/min (>60); Glucose 105 mg/dL (74-106); Potassium 4.1 mmol/L (3.5-5.1); Sodium Level 137 mmol/L (136-145)
== END | disposition home or self-care (01) ==
LOC: BIMLAB 09:15
PROVIDERS: PCP Internal Medicine; Referring Provider Internal Medicine; Visit Provider Internal Medicine
DX: I10 Essential (primary) hypertension (principal)
CPT/HCPCS: 36415; 80048

== ENCOUNTER → 2023-04-21 | Outpatient (CLI) | payer MEDICARE, OTHER, SELFPAY ==
[2023-04-21 12:26] LABS: Absolute Lymphocyte Count 2.01 X10^3/uL (0.83-4.51); Absolute Neutrophil Count 5.8 X10^3/uL (2.0-7.7); Basophil# 0.04 X10^3/uL; Basophil% 0.4 % (0-1); Eosinophil# 0.31 X10^3/uL; Eosinophils% 3.5 % (0-5); Hemoglobin 14.4 g/dL (12.0-15.0); Lymphocyte # 2.01 X10^3/ul (0.83-4.51); Lymphocyte % 22.6 % (19-41); Mean Corp Hgb Conc 33.5 g/dL (32-36); Mean Corpuscular Hgb 30.9 pg (27.0-32.0); Mean Corpuscular Volume 92.3 fL (81-99); Mean Platelet Vol. 10.4 fl (6.2-12.0); Monocyte# 0.71 X10^3/uL; NRBC Flagged by Analyzer 0 % (0-5); Neutrophil # 5.81 X10^3/uL (2.7-7.7); Neutrophil % 65.2 % (47-70); Platelet Count 200 K/mm3 (150-450); RBC Distribution Width CV 12.6 % (11.6-14.6); RBC Distribution Width SD 42.6 fl (35.1-43.9); Red Blood Count 4.66 M/mm3 (4.2-5.4); White Blood Count 8.9 K/mm3 (4.4-11.0)
[2023-04-21 12:40] LABS: Vitamin D,25 Hydroxy 77.6 ng/mL
[2023-04-21 12:45] LABS: ALB/GLOB Ratio 1.3 RATIO (0.9-2.4); AST(SGOT) 19 U/L (15-37); Alanine Aminotransfer ALT/SGPT 27 U/L (13-56); Albumin, Serum 3.8 g/dL (3.2-5.0); Alkaline Phosphatase 54 U/L (45-117); Anion Gap 8 (5-15); BUN 9 mg/dL (7-18); BUN/Creat Ratio 12.8 RATIO (10-20); Calcium,Total 9.1 mg/dL (8.5-10.1); Chloride 99 mmol/L (98-107); Cholesterol 233 mg/dL (200); EST Glomerular Filtration Rate 87 mL/min (>60); Est Glom Filt Rate - Afr Amer 105 mL/min (>60); Glucose 104 mg/dL (74-106); High Density Lipoprotein 103 mg/dL; Potassium 3.9 mmol/L (3.5-5.1); Protein, Total 6.8 g/dL (6.4-8.2); Sodium Level 131 mmol/L (136-145); Triglycerides 115 mg/dL; Very Low Density Lipoprotein 23 mg/dL (5-40)
== END | disposition home or self-care (01) ==
LOC: BIMLAB 09:32
PROVIDERS: PCP Internal Medicine; Referring Provider Internal Medicine; Visit Provider Internal Medicine
DX: I10 Essential (primary) hypertension (principal); E78.5 Hyperlipidemia, unspecified; M81.0 Age-related osteoporosis without current pathological fracture
CPT/HCPCS: 36415; 80053; 80061; 82306; 85025

== ENCOUNTER → 2023-05-08 | Outpatient (CLI) | payer MEDICARE, OTHER, SELFPAY ==
--- NOTE | 2023-05-08 13:51 | BI_ITS ---
MAMMOGRAPHY - BILATERAL SCREENING REASON FOR EXAM: Female, 72 years old. Routine annual screening examination. PERTINENT HISTORY: Non-contributory. TECHNIQUE: Digital bilateral breast taylor (3D mammographic acquisition) in the CC and MLO projections. 2-D mediolateral oblique (MLO) and craniocaudad (CC) views of both breasts were obtained. CAD: Full Field Digital Mammography with Computer Added Detection was performed. COMPARISON: Comparison is made with prior study dated April 22, 2022 and April 03, 2021. FINDINGS: Breast Composition: There are scattered areas of fibroglandular density. There are no dominant masses or suspicious calcifications. Stable small benign-appearing bilateral axillary lymph nodes. No other significant abnormalities are identified. There has been no significant change since the prior study. BI/SCRN MAMM (CAD)W/TAYLOR BILAT IMPRESSION: Stable bilateral screening mammogram. Yearly follow-up mammogram recommended. (A) ASSESSMENT CATEGORY: BIRADS Category 2: Benign. A letter regarding these results will be sent to the patient by the facility within 30 days. Approximately 10% of breast cancers are not detected by mammography. A normal mammogram should not delay biopsy of a clinically suspicious abnormality. [id number] Electronically Signed: Doc Lucero MD at 9:01 EDT ,
--- NOTE | 2023-05-08 14:04 | BD_ITS ---
STUDY: DUAL ENERGY X-RAY ABSORPTIOMETRY / DXA REASON FOR EXAM: Female, 72 years old. Osteoporosis TECHNIQUE: Bone Mineral Density (BMD) measurements of lumbar spine and bilateral hips were obtained. COMPARISON: Comparison is made with prior study dated 04/03/2021. FINDINGS: Lumbar Spine (L1-L4): g/cm2 (0.734) / T-score (-2.2) / Z-score (-0.2) Findings are suggestive of osteopenia with a high fracture risk. Left Femur Total: g/cm2 (0.879) / T-score (-0.5) / Z-score (1.1) Left Femoral Neck: g/cm2 (0.733) / T-score (-1.0) / Z-score (0.8) Right Femur Total: g/cm2 (0.900) / T-score (-0.3) / Z-score (1.2) Right Femoral Neck: g/cm2 (0.746) / T-score (-0.9) / Z-score (1.0) The T-Scores on the most recent prior examination were: Lumbar Spine (L1-L4): There has been worsening of bone density since the previous examination. Left Femur Total: which represents a worsening of 0.5. Right Femur Total: which represents a worsening of 0.7%. BD/Dexa Bone Density Study IMPRESSION: The patient is considered osteopenic as outlined below according to World [place] Organization (WHO) criteria with a high fracture risk. There has been worsening of bone density since the previous examination. Reference Information: The T-score is the number of standard deviations above or below the standard which is normal for young adults at their peak bone mineral density. The World Health Organization (WHO) interprets the T-scores as follows: Above -1 Normal bone density Between -1 and -2.5 Osteopenia Equal to / or below -2.5 Osteoporosis As a practical clinical guideline, osteopenia may be graded as follows: Mild -1 through -1.5 Moderate -1.6 through -2.0 Severe -2.1 through -2.4 The Z-score is the number of standard deviations above or below age-matched controls. A Z-score of less than -1.5 would be considered abnormal. References: 1. NIH Osteoporosis and Related Bone Diseases www osteo.org 2. International Society for Clinical Densitometry www iscd.org 3. National Osteoporosis Foundation www nof.org Electronically Signed: Doc Lucero MD at 14:42 EDT ,
== END | disposition home or self-care (01) ==
LOC: OPBD 13:50
PROVIDERS: PCP Internal Medicine; Referring Provider Internal Medicine; Visit Provider Internal Medicine
DX: Z12.31 Encounter for screening mammogram for malignant neoplasm of breast (principal); M81.0 Age-related osteoporosis without current pathological fracture
CPT/HCPCS: 77063; 77067; 77080

== ENCOUNTER → 2023-06-02 | Outpatient (CLI) | payer MEDICARE, OTHER, SELFPAY ==
[2023-06-02 12:28] LABS: Anion Gap 8 (5-15); BUN 12 mg/dL (7-18); BUN/Creat Ratio 15.8 RATIO (10-20); Calcium,Total 9.8 mg/dL (8.5-10.1); Chloride 102 mmol/L (98-107); Creatinine, Serum 0.76 mg/dL (0.55-1.02); EST Glomerular Filtration Rate 80 mL/min (>60); Est Glom Filt Rate - Afr Amer 96 mL/min (>60); Glucose 110 mg/dL (74-106); Potassium 4.2 mmol/L (3.5-5.1); Sodium Level 138 mmol/L (136-145)
== END | disposition home or self-care (01) ==
LOC: BIMLAB 10:19
PROVIDERS: PCP Internal Medicine; Visit Provider Internal Medicine
DX: E87.1 Hypo-osmolality and hyponatremia (principal)
CPT/HCPCS: 36415; 80048

== ENCOUNTER → 2023-06-23 | Outpatient (CLI) | payer MEDICARE, OTHER, SELFPAY ==
[2023-06-23 12:37] LABS: Bacteria 0 SEEN /hpf (None Seen); Mucous, Urine 0 SEEN /hpf (<or=2+); Red Blood Cells-Urine 0 SEEN /hpf (0-5); Squamous Epithelial Cells - UA 0 SEEN /hpf (5-10)
[2023-06-23 12:58] LABS: Color, Urine Yellow (Yellow); Glucose, Dipstick Normal (Normal); Ketone-Dipstick Negative (Negative); Leukocyte Esterase-Dipstick 500 /ul (Negative); Nitrite-Dipstick Positive (Negative); Occult Blood-Urine 50 /ul (Negative); Protein-Dipstick 30 mg/dl (Negative); Specific Gravity, Urine 1.005 (1.002-1.030); Urine Bilirubin Dipstick Negative (Negative); Urine Clarity Sl. Cloudy (Clear); Urine Urobilinogen Normal (Normal)
[2023-06-23 13:10] LABS: White Blood Cells >100 SEEN /hpf (0-5)
== END | disposition home or self-care (01) ==
LOC: LABSPEC 12:26
PROVIDERS: PCP Internal Medicine; Referring Provider Physician Assistant; Visit Provider Physician Assistant
DX: R30.0 Dysuria (principal)
CPT/HCPCS: 81001; 87077; 87086; 87088; 87186

== ENCOUNTER → 2023-10-27 | Outpatient (CLI) | payer MEDICARE, OTHER, SELFPAY ==
--- OUTSIDE RECORDS SUMMARY | 2023-10-27 12:33 | XMS RPT_ITS | CCD ---
Author Name Unknown Address [address] [place], [place] [id number] Organization [facility] Care Team Providers Care Sailmaker Name Role Phone Celi Martinez PA-C Unavailable Allergies Allergy Classification Reported Allergen(s) Allergy Type Date of Onset Reaction(s) Facility (1 source) Penicillin Drug Allergy 07-31-2018 [facility] Work Phone: Medications Completed/Discontinued Medications Medication Drug Class(es) Dates Sig (Normalized) Sig (Original) acebutolol hydrochloride 200 mg oral capsule (1 source) beta-Adrenergic Min Start: 8 ACEBUTOLOL HCL 200 MG CAPS 1 capsule once daily ACEBUTOLOL HCL [id number] Chuckie Cordoba RN Calcium (1 source) Phosphate Binder, Calcium Start: 8 CALCIUM TABS as directed CALCIUM TABS [id number] Chuckie Cordoba RN cholecalciferol 400 unt oral tablet (1 source) Vitamin D Start: 8 VITAMIN D3 TABS as directed CHOLECALCIFEROL TABS [id number] Chuckie Cordoba RN hydroCHLOROthiazide 12.5 mg oral tablet (1 source) Thiazide Diuretic Start: 8 HYDROCHLOROTHIAZIDE 12.5 MG TABS half tablet (6.25mg) once daily HYDROCHLOROTHIAZIDE [id number] Chuckie Cordoba RN ibuprofen 200 mg oral tablet (1 source) Nonsteroidal Anti-inflammator y Drug Start: 8 ADVIL 200 MG TABS 4 tablets (800mg) as directed as needed IBUPROFEN [id number] Chuckie Cordoba RN OMEGA-3 FATTY ACIDS CAPS (1 source) Start: 8 OMEGA 3 CAPS as directed OMEGA-3 FATTY ACIDS CAPS [id number] Chuckie Cordoba RN traMADol hydrochloride 50 mg oral tablet (2 sources) Opioid Agonist Start: 8 TRAMADOL HCL 50 MG TABS takes one tab as needed TRAMADOL HCL [id number] Celi Martinez PA-C Problems Active Problems Problem Classification Problem Date Documented Da te Episodic/Chronic Other acquired deformities (1 source) Spondylolisthesis ; Translations: [Spondylolisthesi s, lumbar region] Onset: 08-03-2018 08-03-2018 Chronic Other connective tissue disease (1 source) Synovial cyst of lumbar spine; Translations: [Other bursal cyst, other site] Onset: 08-03-2018 08-03-2018 Episodic Unclassified (1 source) History of lumbar fusion; Translations: [Arthrodesis status] Onset: 09-25-2018 09-25-2018 Past or Other Problems Problem Classification Problem Date Documented Da te Episodic/Chronic Unclassified (1 source) Problem Results Test Name Value Interpretation Reference Range Facil ity Vital Signs Date Time Vital Sign Value Performing Clinician Facility NEGATED: Highlighted [id number] 09:54-0500 BMI (Body Mass Index) 22.52 kg/m2 Vamshi Vasquez AT [facility] Work Phone: NEGATED: Highlighted [id number] 09:54-0500 BP Diastolic 72 mm[Hg] Vamshi Vasquez AT [facility] Work Phone: NEGATED: Highlighted [id number] 09:54-0500 BP Systolic 117 mm[Hg] Vamshi Vasquez AT [facility] Work Phone: NEGATED: Highlighted [id number] 09:54-0500 Height 167.64 cm Vamshi Vasquez AT [facility] Work Phone: NEGATED: Highlighted [id number] 09:54-0500 Height 168 cm Vamshi Vasquez AT [facility] Work Phone: NEGATED: Highlighted [id number] 09:54-0500 Pulse (Heart Rate) 66 /min Vamshi Vasquez AT [facility] Work Phone: NEGATED: Highlighted [id number] 09:54-0500 Weight 63.05 kg Vamshi Vasquez AT [facility] Work Phone: NEGATED: Highlighted [id number] 09:54-0500 Weight 63 kg Vamshi Vasquez AT [facility] Work Phone: Encounters Encounter Date Encounter Type Care Provider Facility Start: 09-25-2018 End: 09-30-2018 Patient encounter procedure Celi D'Rohan PA-C Work Phone: [facility] Work Phone: Procedures Date Procedure Procedure Detail Performing Clinician Start: 09-25-2018 End: 09-30-2018 Blood pressure within normal parameters - no follow-up required Celi D'Rohan PA-C Work Phone: Start: 09-25-2018 End: 09-30-2018 BMI documented within normal parameters - no follow-up plan is required Celi D'Rohan PA-C Work Phone: Start: 09-25-2018 End: 09-30-2018 Documentation of current medications Celi D'Rohan PA-C Work Phone: Start: 09-25-2018 End: 09-30-2018 Pain assessment documented as positive - follow-up documented Celi D'Rohan PA-C Work Phone: Start: 09-25-2018 End: 09-30-2018 Tobacco non-user Celi D'Rohan PA-C Work Phone: Plan of Treatment Date Care Activity Detail Author Start: 01-04-2019 End: 01-04-2019 Appointment Appointment [facility] Work Phone: Immunizations Immunization Date Immunization Notes Care Provider Aldo marques No information available. Vamshi Vasquez AT [facility] Work Phone: Social History Date Type Detail Facility Start: 09-30-2018 End: 09-30-2018 Assertion Unknown if ever smoked [facility] Work Phone: Chief Complaint Chief Complaint Description Start Date lower back post Laminectomy L4-L5, removal of intracanal extradural lesion, synovial cyst, fusion L4-L5, instrumentation, local bone graft, allograft bone, nonstructural and bone marrow aspirate on 09/08/2018 Preliminary chief co mplaint data, not yet signed by the author as of Instructions Instruction Description Start Date Completed Advance Directives There may be information available, but it has not been provided by the sender. Assessments There may be information available, but it has not been provided by the sender. Review of System There may be information available, but it has not been provided by the sender. Family History There may be information available, but it has not been provided by the sender. History of Present Illness There may be information available, but it has not been provided by the sender. Additional Source Comments Reason for Visit (unrecogniz ed section and content) FOR RECORDS PERTAINING TO PATIENTS WHO ARE OR HAVE BEEN ENROLLED IN A CHEMICAL DEPENDENCY/SUBSTANCEABUSE PROGRAM, SOME INFORMATION MAY BE OMITTED. This clinical summary was aggregated from multiple sources. Caution should be exercised in using it in the provision of clinical care. This summary normalizes information from multiple sources, and as a consequence, information in this document may materially change the coding, format and clinical context of patient data. In addition, data may be omitted in some cases. CLINICAL DECISIONS SHOULD BE BASED ON THE PRIMARY CLINICAL RECORDS. [employer] provides no warranty or guarantee of the accuracy or completeness of information in this document.
[2023-10-27 12:52] LABS: Vitamin D,25 Hydroxy 48.7 ng/mL
[2023-10-27 13:18] LABS: Anion Gap 8 (5-15); BUN 8 mg/dL (7-18); BUN/Creat Ratio 10.4 RATIO (10-20); Calcium,Total 9.6 mg/dL (8.5-10.1); Chloride 102 mmol/L (98-107); Creatinine, Serum 0.77 mg/dL (0.55-1.02); EST Glomerular Filtration Rate 79 mL/min (>60); Est Glom Filt Rate - Afr Amer 95 mL/min (>60); Glucose 128 mg/dL (74-106); Potassium 3.9 mmol/L (3.5-5.1); Sodium Level 137 mmol/L (136-145)
== END | disposition home or self-care (01) ==
LOC: BIMLAB 10:57
PROVIDERS: PCP Internal Medicine; Referring Provider Internal Medicine; Visit Provider Internal Medicine
DX: M81.0 Age-related osteoporosis without current pathological fracture (principal); I10 Essential (primary) hypertension
CPT/HCPCS: 36415; 80048; 82306

== ENCOUNTER → 2024-05-05 | Outpatient (CLI) | payer MEDICARE, OTHER, SELFPAY ==
[2024-05-05 12:52] LABS: Absolute Lymphocyte Count 2.46 X10^3/uL (0.83-4.51); Absolute Neutrophil Count 6.5 X10^3/uL (2.0-7.7); Basophil# 0.04 X10^3/uL; Basophil% 0.4 % (0-1); Hematocrit 43.1 % (37-47); Hemoglobin 14.5 g/dL (12.0-15.0); Lymphocyte # 2.46 X10^3/ul (0.83-4.51); Lymphocyte % 24.3 % (19-41); Mean Corp Hgb Conc 33.6 g/dL (32-36); Mean Corpuscular Hgb 31.3 pg (27.0-32.0); Mean Corpuscular Volume 92.9 fL (81-99); Mean Platelet Vol. 10.2 fl (6.2-12.0); Monocyte% 8.9 % (0-10); NRBC Flagged by Analyzer 0 % (0-5); Neutrophil # 6.48 X10^3/uL (2.7-7.7); Neutrophil % 63.8 % (47-70); Platelet Count 263 K/mm3 (150-450); RBC Distribution Width CV 13.9 % (11.6-14.6); RBC Distribution Width SD 46.9 fl (35.1-43.9); Red Blood Count 4.64 M/mm3 (4.2-5.4); White Blood Count 10.1 K/mm3 (4.4-11.0)
[2024-05-05 12:53] LABS: ALB/GLOB Ratio 1.1 RATIO (0.9-2.4); AST(SGOT) 20 U/L (15-37); Alanine Aminotransfer ALT/SGPT 40 U/L (13-56); Albumin, Serum 3.6 g/dL (3.2-5.0); Alkaline Phosphatase 70 U/L (45-117); Anion Gap 4 (5-15); BUN 9 mg/dL (7-18); BUN/Creat Ratio 11.9 RATIO (10-20); Calcium,Total 9.9 mg/dL (8.5-10.1); Chloride 102 mmol/L (98-107); Cholesterol 266 mg/dL (200); Creatinine, Serum 0.76 mg/dL (0.55-1.02); EST Glomerular Filtration Rate 80 mL/min (>60); Est Glom Filt Rate - Afr Amer 97 mL/min (>60); Globulin 3.4 g/dL (2.2-4.2); Glucose 107 mg/dL (74-106); High Density Lipoprotein 120 mg/dL; Potassium 3.7 mmol/L (3.5-5.1); Sodium Level 136 mmol/L (136-145); Triglycerides 74 mg/dL; Very Low Density Lipoprotein 15 mg/dL (5-40)
[2024-05-05 13:09] LABS: Vitamin D,25 Hydroxy 56.3 ng/mL
== END | disposition home or self-care (01) ==
LOC: BIMLAB 10:25
PROVIDERS: PCP Internal Medicine; Referring Provider Internal Medicine; Visit Provider Internal Medicine
DX: I10 Essential (primary) hypertension (principal); M81.0 Age-related osteoporosis without current pathological fracture; E78.5 Hyperlipidemia, unspecified
CPT/HCPCS: 36415; 80053; 80061; 82306; 85025

== ENCOUNTER → 2024-06-15 | Outpatient (CLI) | payer MEDICARE, OTHER, SELFPAY ==
--- NOTE | 2024-06-15 09:31 | BI_ITS ---
MAMMOGRAPHY - BILATERAL SCREENING REASON FOR EXAM: Female, 73 years old. Routine annual screening examination. PERTINENT HISTORY: Non-contributory. Prior left ultrasound-guided breast biopsy. TECHNIQUE: Digital bilateral breast taylor (3D mammographic acquisition) in the CC and MLO projections. 2-D mediolateral oblique (MLO) and craniocaudad (CC) views of both breasts were obtained. CAD: Full Field Digital Mammography with Computer Added Detection was performed. COMPARISON: Comparison is made with prior study May 08, 2023 and April 22, 2022. FINDINGS: Breast Composition: There are scattered areas of fibroglandular density. There are no dominant masses or suspicious calcifications. Stable small benign-appearing bilateral axillary lymph nodes. No other significant abnormalities are identified. There has been no significant change since the prior study. BI/SCRN MAMM (CAD)W/TAYLOR BILAT IMPRESSION: Stable bilateral screening mammogram. Yearly follow-up mammogram recommended. (A) ASSESSMENT CATEGORY: BIRADS Category 2: Benign. A letter regarding these results will be sent to the patient by the facility within 30 days. Approximately 10% of breast cancers are not detected by mammography. A normal mammogram should not delay biopsy of a clinically suspicious abnormality. [id number] Electronically Signed: Doc Lucero MD at 11:08 EDT ,
== END | disposition home or self-care (01) ==
LOC: OPBI 09:30
PROVIDERS: PCP Internal Medicine; Referring Provider Internal Medicine; Visit Provider Internal Medicine
DX: Z12.31 Encounter for screening mammogram for malignant neoplasm of breast (principal)
CPT/HCPCS: 77063; 77067

== ENCOUNTER → 2025-03-08 | Outpatient (CLI) | payer MEDICARE, OTHER, SELFPAY ==
[2025-03-08 12:24] LABS: Absolute Lymphocyte Count 1.91 X10^3/uL (0.83-4.51); Absolute Neutrophil Count 4.1 X10^3/uL (2.0-7.7); Basophil# 0.05 X10^3/uL; Basophil% 0.7 % (0-1); Eosinophil# 0.28 X10^3/uL; Hematocrit 41.9 % (37-47); Hemoglobin 14.7 g/dL (12.0-15.0); Lymphocyte # 1.91 X10^3/ul (0.83-4.51); Lymphocyte % 27.4 % (19-41); Mean Corp Hgb Conc 35.1 g/dL (32-36); Mean Corpuscular Hgb 31.7 pg (27.0-32.0); Mean Corpuscular Volume 90.5 fL (81-99); Mean Platelet Vol. 10.9 fl (6.2-12.0); Monocyte# 0.56 X10^3/uL; NRBC Flagged by Analyzer 0 % (0-5); Neutrophil # 4.14 X10^3/uL (2.7-7.7); Neutrophil % 59.5 % (47-70); Platelet Count 247 K/mm3 (150-450); RBC Distribution Width CV 11.9 % (11.6-14.6); RBC Distribution Width SD 39.2 fl (35.1-43.9); Red Blood Count 4.63 M/mm3 (4.2-5.4)
[2025-03-08 13:09] LABS: ALB/GLOB Ratio 2.3 RATIO (0.9-2.4); AST(SGOT) 21 U/L (<=31); Alanine Aminotransfer ALT/SGPT 14 U/L (<=34); Albumin, Serum 4.4 g/dL (3.4-4.8); Alkaline Phosphatase 54 U/L (35-104); Anion Gap 14 (5-15); BUN 8 mg/dL (4-19); BUN/Creat Ratio 15.3 RATIO (10-20); Calcium,Total 9.1 mg/dL (7.6-11.0); Carbon Dioxide 24.3 mmol/L (21.0-32.0); Chloride 95 mmol/L (98-108); Cholesterol 243 mg/dL (<=200); Creatinine, Serum 0.53 mg/dL (0.70-1.20); EST Glomerular Filtration Rate 98 (>60); Globulin 1.9 g/dL (2.2-4.2); Glucose 93 mg/dL (70-99); High Density Lipoprotein 111 mg/dL; Low Density Lipoprotein Calc. 116 mg/dL; Potassium 3.7 mmol/L (3.3-5.1); Protein, Total 6.3 g/dL (5.9-8.4); Sodium Level 133 mmol/L (133-145); Total Bilirubin 0.51 mg/dL (0.00-1.30); Triglycerides 79 mg/dL; Very Low Density Lipoprotein 16 mg/dL (5-40); Vitamin D,25 Hydroxy 57.3 ng/mL (30-100); cholesterol:hdl ratio screen 2.19
== END | disposition home or self-care (01) ==
LOC: BIMLAB 09:14
PROVIDERS: PCP Internal Medicine; Referring Provider Internal Medicine; Visit Provider Internal Medicine
DX: I10 Essential (primary) hypertension (principal); M81.0 Age-related osteoporosis without current pathological fracture
CPT/HCPCS: 36415; 80053; 80061; 82306; 85025

== ENCOUNTER → 2025-08-19 | Outpatient (CLI) | payer MEDICARE, OTHER, SELFPAY ==
--- NOTE | 2025-08-19 10:51 | BI_ITS ---
EXAM: SCRN MAMM (CAD)W/TAYLOR BILAT DATE: 08/19/2025 CLINICAL HISTORY: F, Age 74 y/o , SCREENING No family history. History of prior left ultrasound-guided breast biopsy. TECHNIQUE: Procedure Code: [id number] Modality: MG Procedure: SCRN MAMM (CAD)W/TAYLOR BILAT COMPARISON: Prior exam(s) dated June 15, 2024.. FINDINGS: TISSUE DENSITY: There are scattered areas of fibroglandular density. Bilateral Breast Mammographic Findings: No significant masses, calcifications or other abnormalities are identified. Stable small benign-appearing bilateral axillary lymph nodes. A tissue clip marker is once again seen in the slightly superior lateral aspect of the retroareolar region of the left breast. No suspicious masses, areas of developing architectural distortion, or suspicious calcifications. There has been no significant interval change. BI/SCRN MAMM (CAD)W/TAYLOR BILAT IMPRESSION: Stable bilateral screening mammogram. OVERALL FINAL ASSESSMENT BI-RADS 2: BENIGN RECOMMENDATION: Routine annual follow-up in 1 Year Additional Recommendation none A letter with findings and recommendations will be mailed to the patient. Reading Location: [place] [address]
== END | disposition home or self-care (01) ==
LOC: OPBI 10:48
PROVIDERS: PCP Internal Medicine; Referring Provider Nurse Practitioner Family; Visit Provider Nurse Practitioner Family
DX: Z12.31 Encounter for screening mammogram for malignant neoplasm of breast (principal)
CPT/HCPCS: 77063; 77067